=== PATIENT | male | born 1965 | race Caucasian/White ===

== ENCOUNTER 2019-06-16 12:24 | Emergency (ER) | payer SELFPAY ==
--- NOTE | 2019-06-16 13:23 | CR ---
Chest: Portable view of the chest was obtained. Comparison: No previous chest x-ray. Heart size and mediastinum are normal. Lungs show no acute parenchymal change. Bony structures are grossly intact. Impression: 1. Nothing acute is appreciated on portable chest x-ray. Diagnostic code #1 This report was dictated in [place] Standard Time
[2019-06-16 13:30] LABS: BLOOD UREA NITROGEN,BUN 16 mg/dL (7.0-18.0); CARBON DIOXIDE,CO2 25.1 mmol/L (21.0-32.0); CHLORIDE,CL 104 mmol/L (98-107); GLUCOSE RANDOM 129 mg/dL (74-106); POTASSIUM,K 3.9 mmol/L (3.5-5.1); SODIUM,NA 140 mmol/L (136-148)
[2019-06-16] MEDS ORDERED: Famotidine 20 MG/2 ML SDV IVPUSH ONE (13:35)
--- NOTE | 2019-06-16 15:27 | EDM.PDOC ---
ED HPI GENERAL MEDICAL PROBLEM - General Chief Complaint: Chest Pain Stated Complaint: CHEST PAIN Time Seen by Provider: 06/16/19 12:29 - History of Present Illness INITIAL COMMENTS - FREE TEXT/NARRATIVE: Anterior lower sternal chest pain sharp intermittent worse with sitting still and improve with exertion x3 days nonradiating denies shortness of breath denies syncope dizziness patient also denies any nausea vomiting or abdominal pain. Patient denies any prior cardiac history. Denies alcohol abuse or smoking Onset: Gradual Duration: Intermittent, Improving, Other (Symptoms improve with exertion and worsens with rest) Worsens with: Reports: Rest. Denies: Movement Chest Pain Score (Numeric/FACES): 3 - Related Data Allergies Allergy/AdvReac Type Severity Reaction Status Date / Time No Known Allergies Allergy Verified 06/16/19 12:26 Home Meds: Home Meds Lansoprazole [Prevacid] 30 mg PO DAILY #30 capsule. 06/16/19 [Rx] Past Medical History - Past Health History Medical/Surgical History: Denies Medical/Surgical History - Infectious Disease History Infectious Disease History: Reports: None Social & Family History - Family History Family Medical History: Noncontributory - Tobacco Use Smoking Status *Q: Never Smoker Second Hand Smoke Exposure: No - Caffeine Use Caffeine Use: Reports: Coffee - Recreational Drug Use Recreational Drug Use: No ED ROS GENERAL - Review of Systems Review Of Systems: See Below Constitutional: Reports: No Symptoms HEENT: Reports: No Symptoms Respiratory: Reports: No Symptoms Cardiovascular: Reports: Chest Pain GI/Abdominal: Reports: No Symptoms Musculoskeletal: Reports: No Symptoms Skin: Reports: No Symptoms Psychiatric: Reports: No Symptoms Hematologic/Lymphatic: Reports: No Symptoms ED EXAM, GENERAL - Physical Exam Exam: See Below Exam Limited By: No Limitations General Appearance: Alert, No Apparent Distress Ears: Normal External Exam, Normal Canal, Hearing Grossly Normal, Normal TMs Ear Exam: Bilateral Ear: Auricle Normal, Canal Normal, TM normal Nose: Normal Inspection, Normal Mucosa, No Blood Throat/Mouth: Normal Inspection, Normal Lips, Normal Teeth, Normal Gums, Normal Oropharynx, Normal Voice, No Airway Compromise Head: Atraumatic, Normocephalic Neck: Normal Inspection, Supple, Non-Tender, Full Range of Motion Respiratory/Chest: No Respiratory Distress, Lungs Clear, Normal Breath Sounds Cardiovascular: Normal Peripheral Pulses, Regular Rate, Rhythm, No JVD, No Murmur GI/Abdominal: Normal Bowel Sounds, Soft, Non-Tender, No Organomegaly, No Distention, No Abnormal Bruit, No Mass Back Exam: Normal Inspection, Full Range of Motion, NT Extremities: Normal Inspection, Normal Range of Motion, Non-Tender, Normal Capillary Refill, No Pedal Edema Neurological: Alert, Oriented, CN II-XII Intact, Normal Cognition, Normal Gait, Normal Reflexes, No Motor/Sensory Deficits Psychiatric: Normal Affect, Normal Mood Skin Exam: Warm, Dry, Intact, Normal Color, No Rash Lymphatic: No Adenopathy EKG INTERPRETATION EKG Date: 06/16/19 Rhythm: NSR Cisco: Normal P-Wave: Present QRS: Normal ST-T: Normal QT: Normal Course - Vital Signs Last Recorded V/S: Last Vital Signs Temp 98.4 F 06/16/19 12:26 Pulse 69 06/16/19 12:26 Resp 18 06/16/19 12:26 BP 146/81 H 06/16/19 12:26 Pulse Ox 99 06/16/19 12:26 - Orders/Labs/Meds Orders: Active Orders 24 hr Category Date Time Status EKG Documentation Completion [RC] STAT Care 06/16/19 12:26 Active Labs: Laboratory Tests 06/16/19 06/16/19 06/16/19 Range/Units 12:45 12:45 12:45 WBC 7.62 (4.0-11.0) K/uL RBC 4.62 (4.50-5.90) M/uL Hgb 14.7 (13.0-17.0) g/dL Hct 42.3 (38.0-50.0) % MCV 91.6 (80.0-98.0) fL MCH 31.8 (27.0-32.0) pg MCHC 34.8 (31.0-37.0) g/dL RDW Std Deviation 45.7 (28.0-62.0) fl RDW Coeff of Alva 14 (11.0-15.0) % Plt Count 189 (150-400) K/uL MPV 11.10 (7.40-12.00) fL Neut % (Auto) 83.7 H (48.0-80.0) % Lymph % (Auto) 10.2 L (16.0-40.0) % Walker % (Auto) 5.6 (0.0-15.0) % Eos % (Auto) 0.4 (0.0-7.0) % Baso % (Auto) 0.1 (0.0-1.5) % Neut # (Auto) 6.4 H (1.4-5.7) K/uL Lymph # (Auto) 0.8 (0.6-2.4) K/uL Walker # (Auto) 0.4 (0.0-0.8) K/uL Eos # (Auto) 0.0 (0.0-0.7) K/uL Baso # (Auto) 0.0 (0.0-0.1) K/uL Nucleated RBC % 0.0 /100WBC Nucleated RBCs # 0 K/uL INR 0.98 Sodium 140 (136-148) mmol/L Potassium 3.9 (3.5-5.1) mmol/L Chloride 104 (98-107) mmol/L Carbon Dioxide 25.1 (21.0-32.0) mmol/L BUN 16 (7.0-18.0) mg/dL Creatinine 1.1 (0.8-1.3) mg/dL Est Cr Clr Drug Dosing 85.24 mL/min Estimated GFR (MDRD) > 60.0 ml/min Glucose 129 H (74-106) mg/dL Calcium 9.4 (8.5-10.1) mg/dL Total Bilirubin 1.2 H (0.2-1.0) mg/dL AST 18 (15-37) IU/L ALT 58 (14-63) IU/L Alkaline Phosphatase 104 (46-116) U/L Troponin I < 0.050 (0.000-0.056) ng/mL Total Protein 7.9 (6.4-8.2) g/dL Albumin 4.2 (3.4-5.0) g/dL Globulin 3.7 (2.6-4.0) g/dL Albumin/Globulin Ratio 1.1 (0.9-1.6) Lipase (73-393) U/L 06/16/19 Range/Units 12:45 WBC (4.0-11.0) K/uL RBC (4.50-5.90) M/uL Hgb (13.0-17.0) g/dL Hct (38.0-50.0) % MCV (80.0-98.0) fL MCH (27.0-32.0) pg MCHC (31.0-37.0) g/dL RDW Std Deviation (28.0-62.0) fl RDW Coeff of Alva (11.0-15.0) % Plt Count (150-400) K/uL MPV (7.40-12.00) fL Neut % (Auto) (48.0-80.0) % Lymph % (Auto) (16.0-40.0) % Walker % (Auto) (0.0-15.0) % Eos % (Auto) (0.0-7.0) % Baso % (Auto) (0.0-1.5) % Neut # (Auto) (1.4-5.7) K/uL Lymph # (Auto) (0.6-2.4) K/uL Walker # (Auto) (0.0-0.8) K/uL Eos # (Auto) (0.0-0.7) K/uL Baso # (Auto) (0.0-0.1) K/uL Nucleated RBC % /100WBC Nucleated RBCs # K/uL INR Sodium (136-148) mmol/L Potassium (3.5-5.1) mmol/L Chloride (98-107) mmol/L Carbon Dioxide (21.0-32.0) mmol/L BUN (7.0-18.0) mg/dL Creatinine (0.8-1.3) mg/dL Est Cr Clr Drug Dosing mL/min Estimated GFR (MDRD) ml/min Glucose (74-106) mg/dL Calcium (8.5-10.1) mg/dL Total Bilirubin (0.2-1.0) mg/dL AST (15-37) IU/L ALT (14-63) IU/L Alkaline Phosphatase (46-116) U/L Troponin I (0.000-0.056) ng/mL Total Protein (6.4-8.2) g/dL Albumin (3.4-5.0) g/dL Globulin (2.6-4.0) g/dL Albumin/Globulin Ratio (0.9-1.6) Lipase 135 (73-393) U/L Meds: Medications Discontinued Medications Generic Name Dose Route Start Last Admin Trade Name Rodrigo PRN Reason Stop Dose Admin Famotidine 20 mg 06/16/19 13:35 06/16/19 14:01 Pepcid IVPUSH 06/16/19 13:36 20 mg ONETIME ONE Administration Departure - Departure Time of Disposition: 15:27 Disposition: Home, Self-Care 01 Condition: Good Clinical Impression: Atypical chest pain Instructions: Nonspecific Chest Pain, [id number] Referrals: PCP,Unknown [Primary Care Provider] - Additional Instructions: The following information is given to patients seen in the emergency department who are being discharged to home. This information is to outline your options for follow-up care. We provide all patients seen in our emergency department with a follow-up referral. The need for follow-up, as well as the timing and circumstances, are variable depending upon the specifics of your emergency department visit. If you don't have a primary care physician on staff, we will provide you with a referral. We always advise you to contact your personal physician following an emergency department visit to inform them of the circumstance of the visit and for follow-up with them and/or the need for any referrals to a consulting specialist. The emergency department will also refer you to a specialist when appropriate. This referral assures that you have the opportunity for follow-up care with a specialist. All of these measure are taken in an effort to provide you with optimal care, which includes your follow-up. Under all circumstances we always encourage you to contact your private physician who remains a resource for coordinating your care. When calling for follow-up care, please make the office aware that this follow-up is from your recent emergency room visit. If for any reason you are refused follow-up, please contact the [facility] Emergency Department at and asked to speak to the emergency department charge nurse. Sepsis Event Note - Evaluation Sepsis Screening Result: No Definite Risk - Focused Exam Vital Signs: Vital Signs Temp Pulse Resp BP Pulse Ox 06/16/19 12:26 98.4 F 69 18 146/81 H 99 Date Exam was Performed: 06/16/19 Time Exam was Performed: 15:22
== END 2019-06-16 15:57 | disposition home or self-care (01) ==
LOC: MW.ED 12:24
DX: R07.89 Other chest pain (principal); Z79.899 Other long term (current) drug therapy
CPT/HCPCS: 36415; 71045; 80053; 83690; 84484; 85025; 85610; 93005; 96374; 99285; S0028; 99284; J3490

== ENCOUNTER 2022-09-16 13:58 | Emergency (ER) | payer BC ==
[2022-09-16] MEDS ORDERED: Sodium Chloride 0.9% 1,000 ML IV ONE (15:54)
[2022-09-16] MEDS ORDERED: Ketorolac 30 MG/ML SDV IVPUSH ONE (15:54)
[2022-09-16] MEDS ORDERED: Ondansetron 4 MG/2 ML SDV IVPUSH ONE (15:54)
[2022-09-16 16:18] LABS: CARBON DIOXIDE,CO2 26.8 mmol/L (21.0-32.0); POTASSIUM,K 4.5 mmol/L (3.5-5.1)
[2022-09-16 17:37] LABS: HEMOGLOBIN A1C 8.4 %
[2022-09-16] MEDS ORDERED: Iopamidol 755 MG/ML 500 ML Multipack Bottle IVPUSH ONE (17:44)
== END 2022-09-16 18:53 | disposition home or self-care (01) ==
LOC: MW.ED 13:58
DX: E11.9 Type 2 diabetes mellitus without complications (principal); K56.7 Ileus, unspecified
CPT/HCPCS: 36415; 74177; 80053; 81001; 83036; 83690; 85025; 96361; 96374; 96375; 99284; J1885; J2405; J7030; Q9967

== ENCOUNTER 2022-09-16 21:41 | Inpatient (IN) | payer BC ==
[2022-09-16] MEDS ORDERED: Metoclopramide 10 MG/2 ML SDV IVPUSH ONE (22:18)
[2022-09-16] MEDS ORDERED: Sodium Chloride 0.9% 2.5 ML Syringe FLUSH PRN (22:18)
[2022-09-16] MEDS ORDERED: Lactated Ringers 1,000 ML IV ONE (22:18)
[2022-09-16] MEDS ORDERED: Sodium Chloride 0.9% 10 ML Syringe FLUSH PRN (22:18)
[2022-09-16] MEDS ORDERED: Ondansetron 4 MG Tab.DIS PO PRN (22:48)
[2022-09-16] MEDS ORDERED: Ondansetron 4 MG/2 ML SDV IVPUSH PRN (22:48)
[2022-09-16] MEDS ORDERED: Insulin Aspart 100 Units/ML 3 ML Pen SUBCUT PRN (22:48)
[2022-09-16] MEDS ORDERED: Acetaminophen 650 MG Supp RECTAL PRN (22:48)
[2022-09-16] MEDS ORDERED: Morphine 2 MG/ML SYRINGE IVPUSH PRN (22:48)
[2022-09-16] MEDS ORDERED: 50% Dextrose in Water 50 ML Syringe IVPUSH ONE (22:48)
[2022-09-16] MEDS ORDERED: Sodium Chloride 0.9% 1,000 ML IV SCH (23:00)
[2022-09-16] MEDS ORDERED: 50% Dextrose in Water 50 ML Syringe IVPUSH PRN (23:40)
[2022-09-16] MEDS: Enoxaparin 40 MG/0.4 ML Syringe SUBCUT SCH (23:42)
[2022-09-16] MEDS: Pantoprazole 40 MG in Sodium Chloride 0.9% 10 ML IVPUSH SCH (23:42)
[2022-09-17 07:03] LABS: CARBON DIOXIDE,CO2 23.4 mmol/L (21.0-32.0); POTASSIUM,K 3.4 mmol/L (3.5-5.1)
[2022-09-17] MEDS ORDERED: NS with KCl 40mEq 1,000 ML IV ONE (08:15)
[2022-09-17 08:30] LABS: BILIRUBIN INDIRECT 1.9
[2022-09-17] MEDS ORDERED: Magnesium Sulfate/Water 2 GM in Premix Bag 1 BAG IV ONE (08:45)
[2022-09-17] MEDS: Phenol 1.4% Oral Spray 177 ML Bottle MUCMEM PRN ×2 (13:10→21:06)
[2022-09-17] MEDS: Insulin Aspart 100 Units/ML 3 ML Pen SUBCUT SCH ×2 (13:11→17:04)
[2022-09-17] MEDS: NS + KCl 20mEq/L 1,000 ML IV SCH (16:47)
[2022-09-17] MEDS: Benzocaine/Cetylpyridinium/Menthol Lozenge MUCMEM PRN ×3 (16:51→22:17)
[2022-09-17] MEDS: Ketorolac 30 MG/ML SDV IVPUSH PRN (22:04)
[2022-09-17] MEDS: Enoxaparin 40 MG/0.4 ML Syringe SUBCUT SCH (22:08)
[2022-09-17] MEDS: Pantoprazole 40 MG in Sodium Chloride 0.9% 10 ML IVPUSH SCH (22:09)
[2022-09-18] MEDS: Insulin Aspart 100 Units/ML 3 ML Pen SUBCUT SCH ×4 (00:35→18:39)
[2022-09-18] MEDS: NS + KCl 20mEq/L 1,000 ML IV SCH ×2 (00:40→08:46)
[2022-09-18] MEDS: Benzocaine/Cetylpyridinium/Menthol Lozenge MUCMEM PRN ×3 (03:18→12:40)
[2022-09-18] MEDS: Ketorolac 30 MG/ML SDV IVPUSH PRN ×3 (07:49→20:32)
[2022-09-18 09:15] LABS: CARBON DIOXIDE,CO2 21.4 mmol/L (21.0-32.0)
[2022-09-18] MEDS: Lidocaine 5% 700 MG Patch TRDERM SCH (10:25)
[2022-09-18] MEDS ORDERED: SODIUM PHOSPHATE IV ONE (11:00)
[2022-09-18] MEDS ORDERED: SODIUM CHLORIDE IV ONE (11:00)
[2022-09-18] MEDS: Dextrose 5%-0.9% NaCl with KCl 1,000 ML IV SCH (19:55)
[2022-09-18] MEDS: Phenol 1.4% Oral Spray 177 ML Bottle MUCMEM PRN (19:57)
[2022-09-18] MEDS ORDERED: LORazepam 2 MG/ML SDV IVPUSH PRN (21:00)
[2022-09-18] MEDS: Enoxaparin 40 MG/0.4 ML Syringe SUBCUT SCH (23:54)
[2022-09-18] MEDS: Pantoprazole 40 MG in Sodium Chloride 0.9% 10 ML IVPUSH SCH (23:56)
[2022-09-19] MEDS: Insulin Aspart 100 Units/ML 3 ML Pen SUBCUT SCH ×4 (00:01→16:53)
[2022-09-19] MEDS: Ketorolac 30 MG/ML SDV IVPUSH PRN ×3 (03:43→18:28)
[2022-09-19] MEDS: Dextrose 5%-0.9% NaCl with KCl 1,000 ML IV SCH (05:42)
[2022-09-19 06:35] LABS: CARBON DIOXIDE,CO2 22.4 mmol/L (21.0-32.0); POTASSIUM,K 3.5 mmol/L (3.5-5.1)
[2022-09-19] MEDS: NS + KCl 20mEq/L 1,000 ML IV SCH (07:51)
[2022-09-19] MEDS ORDERED: POTASSIUM PHOSPHATES IV ONE (08:30)
[2022-09-19] MEDS ORDERED: NACL IV ONE (08:30)
[2022-09-19] MEDS ORDERED: DEXTROSE IV ONE (08:30)
[2022-09-19] MEDS ORDERED: Potassium Phosphates 20 MMOLE in Sodium Chloride 0.9% 500 ML IV ONE (08:45)
[2022-09-19] MEDS: Lidocaine 5% 700 MG Patch TRDERM SCH (09:42)
[2022-09-19] MEDS: Benzocaine/Cetylpyridinium/Menthol Lozenge MUCMEM PRN ×2 (09:44→18:39)
[2022-09-19] MEDS ORDERED: Acetaminophen 325 MG Tab PO PRN (22:05)
[2022-09-19] MEDS: Enoxaparin 40 MG/0.4 ML Syringe SUBCUT SCH (22:13)
[2022-09-19] MEDS: Pantoprazole 40 MG in Sodium Chloride 0.9% 10 ML IVPUSH SCH (22:14)
[2022-09-20] MEDS: Benzocaine/Cetylpyridinium/Menthol Lozenge MUCMEM PRN (05:42)
[2022-09-20] MEDS: Ketorolac 30 MG/ML SDV IVPUSH PRN (05:43)
[2022-09-20] MEDS: Insulin Aspart 100 Units/ML 3 ML Pen SUBCUT SCH ×2 (08:21→11:48)
[2022-09-20] MEDS: Lidocaine 5% 700 MG Patch TRDERM SCH (08:42)
[2022-09-20] MEDS ORDERED: Potassium Chloride 20 MEQ Tab.ER PO ONE (09:33)
[2022-09-20] MEDS ORDERED: Magnesium Oxide 400 MG Tab PO ONE (09:33)
== END 2022-09-20 11:30 | disposition home or self-care (01) | DRG 247 ==
LOC: MW.ED 21:41 → MW.MS 22:38 → OBSVTOIN 09-17 10:35 → MW.MS 09-17 12:02
PROVIDERS: ADMIT Hospitalist; ATTEND Hospitalist
PROC: 0D9670Z Drainage of Stomach with Drainage Device, Via Natural or Artificial Opening (ICD-10-PCS; principal; 2022-09-17)
DX: K56.7 Ileus, unspecified (principal); E11.65 Type 2 diabetes mellitus with hyperglycemia; K52.9 Noninfective gastroenteritis and colitis, unspecified; E86.0 Dehydration; E87.6 Hypokalemia; E83.42 Hypomagnesemia; Z79.84 Long term (current) use of oral hypoglycemic drugs; Z79.899 Other long term (current) drug therapy; R65.10 Systemic inflammatory response syndrome (SIRS) of non-infectious origin without acute organ dysfunction
CPT/HCPCS: 36415; 74019; 74019-26; 80048; 80053; 80076; 82947; 83735; 84100; 85025; 99222; 99232; 99238; A9270-GY; C9113; J1650; J1815-GY; J1885; J2060; J2270; J2765; J3475; J3480; J3490; J7030; J7040; J7120

== ENCOUNTER 2025-03-04 10:55 | Emergency (ER) | payer BC ==
[2025-03-04] MEDS ORDERED: Sodium Chloride 0.9% 2.5 ML Syringe FLUSH PRN (11:00)
[2025-03-04] MEDS ORDERED: Sodium Chloride 0.9% 10 ML Syringe FLUSH PRN (11:00)
[2025-03-04 11:13] LABS: BASOPHILS ABSOLUTE AUTO 0.03 K/uL (0.00-0.20); BASOPHILS PERCENT AUTO 0.3 % (0.0-1.0); EOSINOPHILS ABSOLUTE AUTO 0.20 K/uL (0.00-0.45); EOSINOPHILS PERCENT AUTO 2.2 % (0.0-6.0); IMMATURE GRAN ABSOLUTE AUTO 0.04 K/uL (0.00-0.05); IMMATURE GRAN PERCENT AUTO 0.4 % (0.0-0.4); LYMPHOCYTES ABSOLUTE AUTO 1.94 K/uL (1.00-4.80); LYMPHOCYTES PERCENT AUTO 21.5 % (24.0-44.0); MEAN PLATELET VOLUME 10.3 fL (9.4-12.4); MONOCYTES ABSOLUTE AUTO 0.40 K/uL (0.00-0.80); MONOCYTES PERCENT AUTO 4.4 % (0.0-8.0); NEUTROPHILS ABSOLUTE AUTO 6.43 K/uL (1.80-7.70); NEUTROPHILS PERCENT AUTO 71.2 % (41.0-71.0); NRBC ABSOLUTE 0.00 K/uL (0.00-0.02); NRBC PERCENT 0.0 /100WBC (0.0-0.2); PLATELET COUNT,PLT 201 K/uL (150-400); RED BLOOD CELL COUNT 4.86 M/uL (4.52-5.90); WHITE BLOOD CELL COUNT,WBC 9.04 K/uL (3.9-11.3)
[2025-03-04] MEDS: Nitroglycerin 0.4 MG Tab.SL SL PRN (11:22)
[2025-03-04 11:48] LABS: A/G RATIO 1.2 (0.9-1.6); ALANINE AMINOTRANSFERASE,ALT 100 IU/L (14-63); ASPARTATE AMNIOTRANSFERASE,AST 30 IU/L (15-37); BILIRUBIN TOTAL 1.3 mg/dL (0.2-1.0); BLOOD UREA NITROGEN,BUN 18 mg/dL (7.0-18.0); CARBON DIOXIDE,CO2 24.1 mmol/L (21.0-32.0); CHLORIDE,CL 97 mmol/L (98-107); CREATININE 1.3 mg/dL (0.8-1.3); EST CRCL DRUG DOSING (CG) 59.92 mL/min; ESTIMATED GFR 64 mL/min (>60); GLUCOSE RANDOM 344 mg/dL (74-106); POTASSIUM,K 4.0 mmol/L (3.5-5.1); PROTEIN TOTAL,TP 8.3 g/dL (6.4-8.2); SODIUM,NA 135 mmol/L (136-148)
[2025-03-04] MEDS: Iopamidol 755 Mg/ML 100 ML Bottle IVPUSH ONE (11:58)
[2025-03-04] MEDS ORDERED: Lidocaine 2% Viscous Solution 15 ML UD PO ONE (12:09)
[2025-03-04] MEDS: Alum Hydrox/Mag Hydrox/Simeth 15 ML, Lidocaine 2% 5 ML PO ONE (12:18)
== END 2025-03-04 13:59 | disposition home or self-care (01) ==
LOC: MW.ED 10:55
DX: R07.9 Chest pain, unspecified (principal)
CPT/HCPCS: 36415; 71275; 80053; 82947; 84484; 85025; 93005; 96360; 99285; A9270; J3490; J7030; Q9967; 93010; 99284